=== PATIENT | female | born 1985 | race Caucasian/White ===

== ENCOUNTER 2016-10-05 00:22 | Emergency (ER) | payer OTHER ==
--- NOTE | 2016-10-05 02:07 | ED NURSING NOTES ---
Clinical Report - Nurses [facility] [address] [place] [address] 10/05/2016 0:24 Patient: DAVID STUBBS TRIAGE Triage time 00:28. Acuity: LEVEL 3. Chief Complaint: FALL while running. 00:37 10/05/16. Alert. No acute distress. SEPSIS SCREEN: Sepsis Screen. Negative (no infection suspected/documented). BRIANA COMA SCORE: [place] Coma Scale: 15- eyes open spontaneously (4); best verbal response- oriented x 4 (5); best motor response- obeys commands (6). --00:37 Ibis Hahn R.N. 00:37 10/05/16. BP: 143/94. HR: 87. RR: 18. O2 saturation: 99%. Temp: 97.9 F. Pain level now 8/10. --00:37 Ibis Hahn R.N. Weight: 71.6 kg stated. Height/Length: 60 inches Per Patient. BMI: 30.8. --00:33 Ibis Hahn R.N. Medications Levothyroxine Sodium Oral. --00:36 Ibis Hahn R.N. Allergies Keflex. --00:36 Ibis Hahn R.N. History Arrived by private vehicle. Historian: patient. Accompanied by family. Primary physician (renee). ( tripped and fell yesterday while running, states she landed onto left side (left knee/hip/arm) with left arm under her and has been experiencing left sided rib pain.). This occurred yesterday. Occurred at home. 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 Trauma activation: Pre-hospital notification of patient arrival was not received. PAST MEDICAL HX: Last normal menstrual period- mirena LMP 6 months ago. Denies current . SOCIAL HX: Former smoker, end date 2012. No alcohol use or drug use. FALL RISK ASSESSMENT: Fall risk assessment completed. No fall risk identified. NUTRITIONAL RISK ASSESSMENT: The nutritional risk assessment revealed no deficiencies. FUNCTIONAL ASSESSMENT: Functional assessment: no impairments noted. LEARNING NEEDS ASSESSMENT: The learning needs assessment revealed no barriers. SKIN INTEGRITY ASSESSMENT: Skin integrity risk assessment completed. No skin integrity risk identified. --00:37 Ibis Hahn R.N. PROBLEMS: Hypothyroidism. --00:36 Ibis Hahn R.N. ADDITIONAL SURGERIES: Tonsillectomy. --00:36 Ibis Hahn R.N. Interventions ID band on patient. To treatment room. --00:37 Ibis Hahn R.N. PHYSICAL ASSESSMENT 00:38 10/05/16. Ambulatory to room. GENERAL / NEURO / PSYCH: Alert. Oriented X 4. Appears in pain. HEENT: Head non-tender. RESPIRATORY: Respirations not labored. CVS: Capillary refill less than 2 seconds. GI / : Abdomen soft and nontender. EXTREMITIES: Neuro-vascular status intact to the extremity. ( Tenderness to left chest wall. No ecchymosis noted). SKIN: Skin is warm and dry. --00:38 Ibis Hahn R.N. NURSING PROGRESS NOTES 00:38 10/05/16. The plan of care for this patient has been created. Patient gowned. Call light placed in reach. Bed placed in lowest position. Brakes of bed on. Patient ready for evaluation- chart flagged. --00:38 Ibis Hahn R.N. 00:58 10/05/16. Care transferred and report given (Suyapa Yanes, EDRN). --00:58 Ibis Hahn R.N. 01:30 10/05/2016 Toradol (Ketorolac Tromethamine) IM 60 mg given. Given in the right deltoid. Allergies verified and confirmed 5 rights. --01:30 Suyapa Blanco Patient transported to radiology by stretcher with tech. (01:48 Oct 05 2016). Patient returned from radiology by stretcher with tech. (01:57 Oct 05 2016). --01:57 Suyapa Blanco 02:22 10/05/2016 Hydrocodone-APAP (Hydrocodone-Acetaminophen) PO 5/325 mg Tablets 2 tab given. Allergies verified, confirmed 5 rights and sedative warning given to the patient and patient's family. --02:22 Suyapa Blanco 02:00 10/05/16. BP: 148/78. HR: 88. RR: 20. Pain level now: 02/15. --02:27 Suyapa Blanco. DISPOSITION / DISCHARGE Condition at departure: stable. The goals identified in the patient's plan of care were met. No learning barriers present. Discharge instructions provided and reviewed with the patient and spouse. Reviewed warnings (Do not drive while on sedative medications). Reviewed medication(s) side effects, precautions, dosing and course information. Prescription(s) given to the patient. Patient and spouse verbalized understanding. Written instructions provided in Guatemalan. ( Follow up with your PCP in two days. Ice affected area and anti-inflammatories as needed.). No follow up contact number given. The patient was discharged by the physician. She was discharged home and accompanied by spouse. She left the Emergency Department ambulatory and via private vehicle. Spouse driving. ( Provider aware of patient vitals, patient clear for discharge at this time.). FALL RISK ASSESSMENT: Fall risk assessment completed. No fall risk identified. --02:25 Suyapa Blanco 02:23 10/05/16. BP: 148/90. HR: 75. RR: 20. O2 saturation: 98% on room air. Temp: deferred. Pain level now: 12/16. --02:25 Suyapa Blanco. Locked/Released at 10/05/2016 2:27 by Suyapa Blanco,
--- NOTE | 2016-10-05 02:07 | ED ORDER SUMMARY ---
..... Patient: DAIVD STUBBS OrderSheet [facility] VisitID: [id number] [address] [place] [address] 31y, F Registration Date/Time: 10/05/2016 ORDER SHEET Weight: 71.6 kg (stated) Allergies: Keflex GENERAL ORDERS: Ribs Unilat w PA Chest Left Urgent (01:11 10/05/2016 Tano Prado) (Ack 1:18 AMcQuoid ER Tech1) (2:00 GUnger) MEDICATION ORDERS: Toradol IM 60 mg (NOW) (01:11 10/05/2016 Tano Prado) (Ack 1:26 HSoule) (1:30 HSoule) Hydrocodone-APAP PO 10/650 mg (NOW, HIGH ALERT MEDICATION) (02:15 10/05/2016 Tano Prado) (Ack 2:16 HSoule) (2:22 HSoule) IV FLUIDS: ORDER SHEET NOTES: [Electronically signed by Bulmaro Donaldson Dr. (02:18 10/05/2016)] [Electronically signed by Suyapa Blanco (02:10/05/2016)] [Electronically locked/signed by Suyapa Blanco (10/05/2016)]
--- NOTE | 2016-10-05 02:07 | ED CLINICAL REPORT ---
Clinical Report - Physicians/Mid Levels [facility] [address] [place] [address] 10/05/2016 0:24 Patient: DAVID STUBBS Time Seen: 00:51; initial patient contact. Arrived- By private vehicle. Historian- patient. HISTORY OF PRESENT ILLNESS Chief Complaint: Injury to CHEST. Location of injuries- chest. The injury occurred yesterday. Occurred at home. Fell and landed on the ground; tripped. The patient complains of moderate pain. No blow to the head, neck pain or loss of consciousness. Not dazed. REVIEW OF SYSTEMS No numbness, weakness, difficulty breathing or laceration. All systems otherwise negative, except as recorded above. PAST HISTORY Hypothyroidism. ADDITIONAL SURGERIES: Tonsillectomy. Medications: Levothyroxine Sodium Oral. Allergies: Keflex. SOCIAL HISTORY Former smoker. ADDITIONAL NOTES The nursing notes have been reviewed. PHYSICAL EXAM Vital Signs: 10/05/2016 00:37 BP: 143/94. HR: 87. RR: 18. O2 saturation: 99%. Temp: 97.9 F. Have been reviewed. Hypertensive. Heart rate normal. Respiratory rate normal. Temperature normal. Oxygen saturation normal. Appearance: Alert. Oriented X3. No acute distress. Head: Head non-tender. No swelling of head. ENT: No dental injury. Neck: Painless ROM. Non-tender. CVS: Heart sounds normal. Rate normal. Rhythm normal. Respiratory: No respiratory distress. Chest wall injury: moderate tenderness, small abrasion and medium sized ecchymosis located in the left and lateral chest. No deformity. No splinting present. No paradoxical movement. Breath sounds normal. Abdomen: No visible injury. Soft and nontender. Bowel sounds normal. Back: No tenderness. ROM normal. Skin: Skin warm and dry. Extremities: Right knee: mild tenderness and swelling and small abrasion and ecchymosis. Neurovascular intact distally. No joint effusion. No erythema. No limitation in ROM. Neuro: Oriented X 3. No motor deficit. LABS, X-RAYS, AND EKG Sternum / Ribs X-rays: No fracture present. Normal lung markings present. Soft tissues normal. No bony lesion present. Views: left ribs. AP of chest. Technique: good. The X-rays were independently viewed by me and interpreted contemporaneously by me. Prior films were not available for comparison. Interpretation time: 02:06. PROGRESS AND PROCEDURES Disposition: Discharged home in good and improved condition. Condition: good. CLINICAL IMPRESSION Multiple contusions with soft tissue hematoma and abrasion to the left chest and right knee. INSTRUCTIONS Your Current Medications: CONTINUE TAKING THE FOLLOWING MEDICATIONS: Levothyroxine Sodium Oral. Prescription Medications: Hydrocodone/APAP 5mg / 325mg: take 1 orally every 6 hours as needed for pain. Dispense fifteen (15). No refill. Follow-up: Follow up with your doctor in about two days. Call for an appointment. Screening today revealed the patient's blood pressure to be in the hypertensive range. The patient should follow up with a primary care provider for blood pressure management. (Electronically signed by Bulmaro Donaldson Dr. 10/05/2016 2:18)
--- NOTE | 2016-10-05 02:07 | ED CLINICAL REPORT ---
Clinical Report - Physicians/Mid Levels [facility] [address] [place] [address] 10/05/2016 0:24 Patient: DAVID STUBBS Time Seen: 00:51; initial patient contact. Arrived- By private vehicle. Historian- patient. HISTORY OF PRESENT ILLNESS Chief Complaint: Injury to CHEST. Location of injuries- chest. The injury occurred yesterday. Occurred at home. Fell and landed on the ground; tripped. The patient complains of moderate pain. No blow to the head, neck pain or loss of consciousness. Not dazed. REVIEW OF SYSTEMS No numbness, weakness, difficulty breathing or laceration. All systems otherwise negative, except as recorded above. PAST HISTORY Hypothyroidism. ADDITIONAL SURGERIES: Tonsillectomy. Medications: Levothyroxine Sodium Oral. Allergies: Keflex. SOCIAL HISTORY Former smoker. ADDITIONAL NOTES The nursing notes have been reviewed. PHYSICAL EXAM Vital Signs: 10/05/2016 00:37 BP: 143/94. HR: 87. RR: 18. O2 saturation: 99%. Temp: 97.9 F. Have been reviewed. Hypertensive. Heart rate normal. Respiratory rate normal. Temperature normal. Oxygen saturation normal. Appearance: Alert. Oriented X3. No acute distress. Head: Head non-tender. No swelling of head. ENT: No dental injury. Neck: Painless ROM. Non-tender. CVS: Heart sounds normal. Rate normal. Rhythm normal. Respiratory: No respiratory distress. Chest wall injury: moderate tenderness, small abrasion and medium sized ecchymosis located in the left and lateral chest. No deformity. No splinting present. No paradoxical movement. Breath sounds normal. Abdomen: No visible injury. Soft and nontender. Bowel sounds normal. Back: No tenderness. ROM normal. Skin: Skin warm and dry. Extremities: Right knee: mild tenderness and swelling and small abrasion and ecchymosis. Neurovascular intact distally. No joint effusion. No erythema. No limitation in ROM. Neuro: Oriented X 3. No motor deficit. LABS, X-RAYS, AND EKG Sternum / Ribs X-rays: No fracture present. Normal lung markings present. Soft tissues normal. No bony lesion present. Views: left ribs. AP of chest. Technique: good. The X-rays were independently viewed by me and interpreted contemporaneously by me. Prior films were not available for comparison. Interpretation time: 02:06. PROGRESS AND PROCEDURES Disposition: Discharged home in good and improved condition. Condition: good. CLINICAL IMPRESSION Multiple contusions with soft tissue hematoma and abrasion to the left chest and right knee. INSTRUCTIONS Your Current Medications: CONTINUE TAKING THE FOLLOWING MEDICATIONS: Levothyroxine Sodium Oral. Prescription Medications: Hydrocodone/APAP 5mg / 325mg: take 1 orally every 6 hours as needed for pain. Dispense fifteen (15). No refill. Follow-up: Follow up with your doctor in about two days. Call for an appointment. Screening today revealed the patient's blood pressure to be in the hypertensive range. The patient should follow up with a primary care provider for blood pressure management. (Electronically signed by Bulmaro Donaldson Dr. 10/05/2016 2:18)
--- NOTE | 2016-10-05 02:07 | ED NURSING NOTES ---
Clinical Report - Nurses [facility] [address] [place] [address] 10/05/2016 0:24 Patient: DAVID STUBBS TRIAGE Triage time 00:28. Acuity: LEVEL 3. Chief Complaint: FALL while running. 00:37 10/05/16. Alert. No acute distress. SEPSIS SCREEN: Sepsis Screen. Negative (no infection suspected/documented). BRIANA COMA SCORE: [place] Coma Scale: 15- eyes open spontaneously (4); best verbal response- oriented x 4 (5); best motor response- obeys commands (6). --00:37 Ibis Hahn R.N. 00:37 10/05/16. BP: 143/94. HR: 87. RR: 18. O2 saturation: 99%. Temp: 97.9 F. Pain level now 8/10. --00:37 Ibis Hahn R.N. Weight: 71.6 kg stated. Height/Length: 60 inches Per Patient. BMI: 30.8. --00:33 Ibis Hahn R.N. Medications Levothyroxine Sodium Oral. --00:36 Ibis Hahn R.N. Allergies Keflex. --00:36 Ibis Hahn R.N. History Arrived by private vehicle. Historian: patient. Accompanied by family. Primary physician (renee). ( tripped and fell yesterday while running, states she landed onto left side (left knee/hip/arm) with left arm under her and has been experiencing left sided rib pain.). This occurred yesterday. Occurred at home. 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 Trauma activation: Pre-hospital notification of patient arrival was not received. PAST MEDICAL HX: Last normal menstrual period- mirena LMP 6 months ago. Denies current . SOCIAL HX: Former smoker, end date 2012. No alcohol use or drug use. FALL RISK ASSESSMENT: Fall risk assessment completed. No fall risk identified. NUTRITIONAL RISK ASSESSMENT: The nutritional risk assessment revealed no deficiencies. FUNCTIONAL ASSESSMENT: Functional assessment: no impairments noted. LEARNING NEEDS ASSESSMENT: The learning needs assessment revealed no barriers. SKIN INTEGRITY ASSESSMENT: Skin integrity risk assessment completed. No skin integrity risk identified. --00:37 Ibis Hahn R.N. PROBLEMS: Hypothyroidism. --00:36 Ibis Hahn R.N. ADDITIONAL SURGERIES: Tonsillectomy. --00:36 Ibis Hahn R.N. Interventions ID band on patient. To treatment room. --00:37 Ibis Hahn R.N. PHYSICAL ASSESSMENT 00:38 10/05/16. Ambulatory to room. GENERAL / NEURO / PSYCH: Alert. Oriented X 4. Appears in pain. HEENT: Head non-tender. RESPIRATORY: Respirations not labored. CVS: Capillary refill less than 2 seconds. GI / : Abdomen soft and nontender. EXTREMITIES: Neuro-vascular status intact to the extremity. ( Tenderness to left chest wall. No ecchymosis noted). SKIN: Skin is warm and dry. --00:38 Ibis Hahn R.N. NURSING PROGRESS NOTES 00:38 10/05/16. The plan of care for this patient has been created. Patient gowned. Call light placed in reach. Bed placed in lowest position. Brakes of bed on. Patient ready for evaluation- chart flagged. --00:38 Ibis Hahn R.N. 00:58 10/05/16. Care transferred and report given (Suyapa Yanes, EDRN). --00:58 Ibis Hahn R.N. 01:30 10/05/2016 Toradol (Ketorolac Tromethamine) IM 60 mg given. Given in the right deltoid. Allergies verified and confirmed 5 rights. --01:30 Suyapa Blanco Patient transported to radiology by stretcher with tech. (01:48 Oct 05 2016). Patient returned from radiology by stretcher with tech. (01:57 Oct 05 2016). --01:57 Suyapa Blanco 02:22 10/05/2016 Hydrocodone-APAP (Hydrocodone-Acetaminophen) PO 5/325 mg Tablets 2 tab given. Allergies verified, confirmed 5 rights and sedative warning given to the patient and patient's family. --02:22 Suyapa Blanco 02:00 10/05/16. BP: 148/78. HR: 88. RR: 20. Pain level now: 02/15. --02:27 Suyapa Blanco. DISPOSITION / DISCHARGE Condition at departure: stable. The goals identified in the patient's plan of care were met. No learning barriers present. Discharge instructions provided and reviewed with the patient and spouse. Reviewed warnings (Do not drive while on sedative medications). Reviewed medication(s) side effects, precautions, dosing and course information. Prescription(s) given to the patient. Patient and spouse verbalized understanding. Written instructions provided in [place] Citizen. ( Follow up with your PCP in two days. Ice affected area and anti-inflammatories as needed.). No follow up contact number given. The patient was discharged by the physician. She was discharged home and accompanied by spouse. She left the Emergency Department ambulatory and via private vehicle. Spouse driving. ( Provider aware of patient vitals, patient clear for discharge at this time.). FALL RISK ASSESSMENT: Fall risk assessment completed. No fall risk identified. --02:25 Suyapa Blanco 02:23 10/05/16. BP: 148/90. HR: 75. RR: 20. O2 saturation: 98% on room air. Temp: deferred. Pain level now: 12/16. --02:25 Suyapa Blanco. Locked/Released at 10/05/2016 2:27 by Suyapa Blanco,
--- NOTE | 2016-10-05 02:07 | ED ORDER SUMMARY ---
..... Patient: DAVID STUBBS OrderSheet [facility] VisitID: [id number] [address] [place] [address] 31y, F Registration Date/Time: 10/05/2016 ORDER SHEET Weight: 71.6 kg (stated) Allergies: Keflex GENERAL ORDERS: Ribs Unilat w PA Chest Left Urgent (01:11 10/05/2016 Tano Prado) (Ack 1:18 AMcQuoid ER Tech1) (2:00 GUnger) MEDICATION ORDERS: Toradol IM 60 mg (NOW) (01:11 10/05/2016 Tano Prado) (Ack 1:26 HSoule) (1:30 HSoule) Hydrocodone-APAP PO 10/650 mg (NOW, HIGH ALERT MEDICATION) (02:15 10/05/2016 Tano Prado) (Ack 2:16 HSoule) (2:22 HSoule) IV FLUIDS: ORDER SHEET NOTES: [Electronically signed by Bulmaro Donaldson Dr. (02:18 10/05/2016)] [Electronically signed by uSyapa Blanco (02:10/05/2016)] [Electronically locked/signed by Suyapa Blanco (10/05/2016)]
--- NOTE | 2016-10-05 02:27 | ED MED RECONCILIATION SUMMARY ---
Patient: DAVID STUBBS Medication Reconciliation Report Located [facility] VisitID: [id number] [address] [place] [address] 31y, F Registration Date/Time: 10/05/2016 Weight: 71.6 kg Height/Length: 60 in. BMI: 30.8 ALLERGIES: Keflex The patient's Home Medications are listed below: CONTINUE TAKING THE FOLLOWING MEDICATIONS: Levothyroxine Sodium Oral The source(s) of the original Home Medication information: Not obtained. The following Medications were given to the patient in the Emergency Department: Toradol [IM] IM 60 mg, administered: 10/05/2016 1:30:00 AM Hydrocodone-APAP [PO] PO 2 tab, administered: 10/05/2016 2:22:00 AM The following Medications were prescribed to the patient: Hydrocodone/APAP 5mg / 325mg: take 1 orally every 6 hours as needed for pain. Dispense fifteen (15). No refill. -- Bulmaro Donaldson Dr.
--- NOTE | 2016-10-05 02:27 | ED MAR SUMMARY ---
..... Medication Administration Record [facility] [address] [place] [address] Patient: DAVID STUBBS Visit ID: [id number] 31y, F Weight: 71.6 kg Height/Length: 60 in BMI: 30.8 ALLERGIES: Keflex Given 01:10/05/2016 Suyapa Blanco, Medication Administered: TORADOL [IM] (KETOROLAC TROMETHAMINE), Dose: 60 mg IM. Medication Ordered: Toradol IM 60 mg (NOW). Given 02:22 10/05/2016 Suyapa Blanco, Medication Administered: HYDROCODONE-APAP [PO] (HYDROCODONE-ACETAMINOPHEN), Dose: 2 tab 5/325 mg Tablets PO. Medication Ordered: Hydrocodone-APAP PO 10/650 mg (NOW, HIGH ALERT MEDICATION).
--- NOTE | 2016-10-05 02:27 | ED MAR SUMMARY ---
..... Medication Administration Record [facility] [address] [place] [address] Patient: DAVID STUBBS Visit ID: [id number] 31y, F Weight: 71.6 kg Height/Length: 60 in BMI: 30.8 ALLERGIES: Keflex Given 01:10/05/2016 Suyapa Blanco, Medication Administered: TORADOL [IM] (KETOROLAC TROMETHAMINE), Dose: 60 mg IM. Medication Ordered: Toradol IM 60 mg (NOW). Given 02:22 10/05/2016 Suyapa Blanco, Medication Administered: HYDROCODONE-APAP [PO] (HYDROCODONE-ACETAMINOPHEN), Dose: 2 tab 5/325 mg Tablets PO. Medication Ordered: Hydrocodone-APAP PO 10/650 mg (NOW, HIGH ALERT MEDICATION).
--- NOTE | 2016-10-05 02:27 | ED MED RECONCILIATION SUMMARY ---
Patient: DAVID STUBBS Medication Reconciliation Report [facility] VisitID: [id number] [address] [place] [address] 31y, F Registration Date/Time: 10/05/2016 Weight: 71.6 kg Height/Length: 60 in. BMI: 30.8 ALLERGIES: Keflex The patient's Home Medications are listed below: CONTINUE TAKING THE FOLLOWING MEDICATIONS: Levothyroxine Sodium Oral The source(s) of the original Home Medication information: Not obtained. The following Medications were given to the patient in the Emergency Department: Toradol [IM] IM 60 mg, administered: 10/05/2016 1:30:00 AM Hydrocodone-APAP [PO] PO 2 tab, administered: 10/05/2016 2:22:00 AM The following Medications were prescribed to the patient: Hydrocodone/APAP 5mg / 325mg: take 1 orally every 6 hours as needed for pain. Dispense fifteen (15). No refill. -- Bulmaro Donaldson Dr.
--- NOTE | 2016-10-05 02:27 | ED DISCHARGE INSTRUCTIONS ---
Patient: DAVID STUBBS General Instructions [facility] VisitID: [id number] [place] [address] 31y, F Registration Date/Time: 10/05/2016 Multiple contusions with soft tissue hematoma and abrasion to the left chest and right knee. INSTRUCTIONS Your Current Medications: CONTINUE TAKING THE FOLLOWING MEDICATIONS: Levothyroxine Sodium Oral. Prescription Medications: Hydrocodone/APAP 5mg / 325mg: take 1 orally every 6 hours as needed for pain. Dispense fifteen (15). No refill. Follow-up: Follow up with your doctor in about two days. Call for an appointment. Screening today revealed the patient's blood pressure to be in the hypertensive range. The patient should follow up with a primary care provider for blood pressure management. ADDITIONAL INFORMATION Contusion,Soft Tissue You have a CONTUSION, which is a bruise with swelling and some bleeding under the skin. There are no broken bones. This injury takes a few days to a few weeks to heal. Home Care: 1) Keep the injured part elevated to reduce pain and swelling. This is especially important during the first 48 hours. 2) Make an ice pack (ice cubes in a plastic bag, wrapped in a towel) and apply for 20 minutes every 1-2 hours the first day. Continue this 3-4 times a day until the pain and swelling goes away. 3) You may use acetaminophen (Tylenol) or ibuprofen (Motrin, Advil) to control pain, unless another pain medicine was prescribed. [ NOTE : If you have chronic liver or kidney disease or ever had a stomach ulcer or GI bleeding, talk with your doctor before using these medicines.] Follow Up with your doctor or this facility if you are not improving within the next THREE days. [NOTE: If X-rays were taken, they will be reviewed by a radiologist. You will be notified of any new findings that may affect your care.] Get Prompt Medical Attention if any of the following occur: -- Pain or swelling increases -- Injured arm or leg becomes cold, blue, numb or tingly -- Redness, warmth or drainage from the skin Hydrocodone Bitartrate, Acetaminophen Oral tablet What is this medicine? ACETAMINOPHEN; HYDROCODONE (a set a PRIYANKA keerthi fen; karla droe KOE done) is a pain reliever. It is used to treat mild to moderate pain. How should I use this medicine? Take this medicine by mouth. Swallow it with a full glass of water. Follow the directions on the prescription label. If the medicine upsets your stomach, take the medicine with food or milk. Do not take more than you are told to take. Talk to your mule spinner regarding the use of this medicine in children. This medicine is not approved for use in children. What side effects may I notice from receiving this medicine? Side effects that you should report to your doctor or health intensive care unit registered nurse as soon as possible: allergic reactions like skin rash, itching or hives, swelling of the face, lips, or tongue breathing problems confusion feeling faint or lightheaded, falls stomach pain yellowing of the eyes or skin Side effects that usually do not require medical attention (report to your doctor or health intensive care unit registered nurse if they continue or are bothersome): nausea, vomiting stomach upset What may interact with this medicine? alcohol antihistamines isoniazid medicines for depression, anxiety, or psychotic disturbances medicines for sleep muscle relaxants naltrexone narcotic medicines (opiates) for pain phenobarbital ritonavir tramadol What if I miss a dose? If you miss a dose, take it as soon as you can. If it is almost time for your next dose, take only that dose. Do not take double or extra doses. Where should I keep my medicine? Keep out of the reach of children. This medicine can be abused. Keep your medicine in a safe place to protect it from theft. Do not share this medicine with anyone. Selling or giving away this medicine is dangerous and against the law. Store at room temperature between 15 and 30 degrees C (59 and 86 degrees F). Protect from light. Keep container tightly closed. Throw away any unused medicine after the expiration date. Discard unused medicine and used packaging carefully. Pets and children can be harmed if they find used or lost packages. What should I tell my health care provider before I take this medicine? They need to know if you have any of these conditions: brain tumor Crohn's disease, inflammatory bowel disease, or ulcerative colitis drink more than 3 alcohol-containing drinks per day drug abuse or addiction head injury heart or circulation problems kidney disease or problems going to the bathroom liver disease lung disease, asthma, or breathing problems an unusual or allergic reaction to acetaminophen, hydrocodone, other opioid analgesics, other medicines, foods, dyes, or preservatives or trying to get breast-feeding What should I watch for while using this medicine? Tell your doctor or health intensive care unit registered nurse if your pain does not go away, if it gets worse, or if you have new or a different type of pain. You may develop tolerance to the medicine. Tolerance means that you will need a higher dose of the medicine for pain relief. Tolerance is normal and is expected if you take the medicine for a long time. Do not suddenly stop taking your medicine because you may develop a severe reaction. Your body becomes used to the medicine. This does NOT mean you are addicted. Addiction is a behavior related to getting and using a drug for a non-medical reason. If you have pain, you have a medical reason to take pain medicine. Your doctor will tell you how much medicine to take. If your doctor wants you to stop the medicine, the dose will be slowly lowered over time to avoid any side effects. You may get drowsy or dizzy when you first start taking the medicine or change doses. Do not drive, use machinery, or do anything that may be dangerous until you know how the medicine affects you. Stand or sit up slowly. There are different types of narcotic medicines (opiates) for pain. If you take more than one type at the same time, you may have more side effects. Give your health care provider a list of all medicines you use. Your doctor will tell you how much medicine to take. Do not take more medicine than directed. Call emergency for help if you have problems breathing. The medicine will cause constipation. Try to have a bowel movement at least every 2 to 3 days. If you do not have a bowel movement for 3 days, call your doctor or health intensive care unit registered nurse. Too much acetaminophen can be very dangerous. Do not take Tylenol (acetaminophen) or medicines that contain acetaminophen with this medicine. Many non-prescription medicines contain acetaminophen. Always read the labels carefully. You have been given the following additional information: Contusion, Soft Tissue Hydrocodone Bitartrate, Acetaminophen Oral tablet (Electronically signed by Bulmaro Donaldson Dr. 10/05/2016 2:18)
--- NOTE | 2016-10-05 02:27 | ED DISCHARGE INSTRUCTIONS ---
Patient: DAVID STUBBS General Instructions [facility] VisitID: [id number] [place] [address] 31y, F Registration Date/Time: 10/05/2016 Multiple contusions with soft tissue hematoma and abrasion to the left chest and right knee. INSTRUCTIONS Your Current Medications: CONTINUE TAKING THE FOLLOWING MEDICATIONS: Levothyroxine Sodium Oral. Prescription Medications: Hydrocodone/APAP 5mg / 325mg: take 1 orally every 6 hours as needed for pain. Dispense fifteen (15). No refill. Follow-up: Follow up with your doctor in about two days. Call for an appointment. Screening today revealed the patient's blood pressure to be in the hypertensive range. The patient should follow up with a primary care provider for blood pressure management. ADDITIONAL INFORMATION Contusion,Soft Tissue You have a CONTUSION, which is a bruise with swelling and some bleeding under the skin. There are no broken bones. This injury takes a few days to a few weeks to heal. Home Care: 1) Keep the injured part elevated to reduce pain and swelling. This is especially important during the first 48 hours. 2) Make an ice pack (ice cubes in a plastic bag, wrapped in a towel) and apply for 20 minutes every 1-2 hours the first day. Continue this 3-4 times a day until the pain and swelling goes away. 3) You may use acetaminophen (Tylenol) or ibuprofen (Motrin, Advil) to control pain, unless another pain medicine was prescribed. [ NOTE : If you have chronic liver or kidney disease or ever had a stomach ulcer or GI bleeding, talk with your doctor before using these medicines.] Follow Up with your doctor or this facility if you are not improving within the next THREE days. [NOTE: If X-rays were taken, they will be reviewed by a radiologist. You will be notified of any new findings that may affect your care.] Get Prompt Medical Attention if any of the following occur: -- Pain or swelling increases -- Injured arm or leg becomes cold, blue, numb or tingly -- Redness, warmth or drainage from the skin Hydrocodone Bitartrate, Acetaminophen Oral tablet What is this medicine? ACETAMINOPHEN; HYDROCODONE (a set a PRIYANKA keerthi fen; karla droe KOE done) is a pain reliever. It is used to treat mild to moderate pain. How should I use this medicine? Take this medicine by mouth. Swallow it with a full glass of water. Follow the directions on the prescription label. If the medicine upsets your stomach, take the medicine with food or milk. Do not take more than you are told to take. Talk to your examining officer regarding the use of this medicine in children. This medicine is not approved for use in children. What side effects may I notice from receiving this medicine? Side effects that you should report to your doctor or health youth care worker as soon as possible: allergic reactions like skin rash, itching or hives, swelling of the face, lips, or tongue breathing problems confusion feeling faint or lightheaded, falls stomach pain yellowing of the eyes or skin Side effects that usually do not require medical attention (report to your doctor or health youth care worker if they continue or are bothersome): nausea, vomiting stomach upset What may interact with this medicine? alcohol antihistamines isoniazid medicines for depression, anxiety, or psychotic disturbances medicines for sleep muscle relaxants naltrexone narcotic medicines (opiates) for pain phenobarbital ritonavir tramadol What if I miss a dose? If you miss a dose, take it as soon as you can. If it is almost time for your next dose, take only that dose. Do not take double or extra doses. Where should I keep my medicine? Keep out of the reach of children. This medicine can be abused. Keep your medicine in a safe place to protect it from theft. Do not share this medicine with anyone. Selling or giving away this medicine is dangerous and against the law. Store at room temperature between 15 and 30 degrees C (59 and 86 degrees F). Protect from light. Keep container tightly closed. Throw away any unused medicine after the expiration date. Discard unused medicine and used packaging carefully. Pets and children can be harmed if they find used or lost packages. What should I tell my health care provider before I take this medicine? They need to know if you have any of these conditions: brain tumor Crohn's disease, inflammatory bowel disease, or ulcerative colitis drink more than 3 alcohol-containing drinks per day drug abuse or addiction head injury heart or circulation problems kidney disease or problems going to the bathroom liver disease lung disease, asthma, or breathing problems an unusual or allergic reaction to acetaminophen, hydrocodone, other opioid analgesics, other medicines, foods, dyes, or preservatives or trying to get breast-feeding What should I watch for while using this medicine? Tell your doctor or health youth care worker if your pain does not go away, if it gets worse, or if you have new or a different type of pain. You may develop tolerance to the medicine. Tolerance means that you will need a higher dose of the medicine for pain relief. Tolerance is normal and is expected if you take the medicine for a long time. Do not suddenly stop taking your medicine because you may develop a severe reaction. Your body becomes used to the medicine. This does NOT mean you are addicted. Addiction is a behavior related to getting and using a drug for a non-medical reason. If you have pain, you have a medical reason to take pain medicine. Your doctor will tell you how much medicine to take. If your doctor wants you to stop the medicine, the dose will be slowly lowered over time to avoid any side effects. You may get drowsy or dizzy when you first start taking the medicine or change doses. Do not drive, use machinery, or do anything that may be dangerous until you know how the medicine affects you. Stand or sit up slowly. There are different types of narcotic medicines (opiates) for pain. If you take more than one type at the same time, you may have more side effects. Give your health care provider a list of all medicines you use. Your doctor will tell you how much medicine to take. Do not take more medicine than directed. Call emergency for help if you have problems breathing. The medicine will cause constipation. Try to have a bowel movement at least every 2 to 3 days. If you do not have a bowel movement for 3 days, call your doctor or health youth care worker. Too much acetaminophen can be very dangerous. Do not take Tylenol (acetaminophen) or medicines that contain acetaminophen with this medicine. Many non-prescription medicines contain acetaminophen. Always read the labels carefully. You have been given the following additional information: Contusion, Soft Tissue Hydrocodone Bitartrate, Acetaminophen Oral tablet (Electronically signed by Bulmaro Donaldson Dr. 10/05/2016 2:18)
--- NOTE | 2016-10-05 07:53 | DIAGNOSTIC IMAGING REPORT ---
PROCEDURE: XR RIBS UNILAT W/PA CHEST-LT INDICATION: TRAUMA/INJURY TECHNIQUE: Two views of the left ribs with single PA view chest. COMPARISON: None. FINDINGS: LEFT RIBS: No displaced rib fractures. No suspicious rib lesions. CHEST: Normal cardiomediastinal contour. Clear lungs without pleural effusion, pneumothorax, or contusion. The other visible osseous structures are intact. IMPRESSION: 1. Intact left ribs. 2. Normal chest without radiographic evidence of trauma.
== END 2016-10-05 02:25 | disposition home or self-care (01) ==
LOC: ED SRH 00:22
DX: S20.212A Contusion of left front wall of thorax, initial encounter (principal); S80.01XA Contusion of right knee, initial encounter; S20.312A Abrasion of left front wall of thorax, initial encounter; S80.211A Abrasion, right knee, initial encounter; W01.0XXA Fall on same level from slipping, tripping and stumbling without subsequent striking against object, initial encounter; Y93.02 Activity, running; Y92.009 Unspecified place in unspecified non-institutional (private) residence as the place of occurrence of the external cause; Z87.891 Personal history of nicotine dependence; Z88.1 Allergy status to other antibiotic agents